=== PATIENT | female | born 1995 | race Caucasian/White ===

== ENCOUNTER 2019-09-23 15:43 | Emergency (ER) | payer OTHER ==
[~2019-09-23] VITALS: Ht 162.5 cm; Wt 68.0 kg
[2019-09-23 16:22] LABS: BASO % 0.7 % (0.0-1.0); EOS # 0.1 10*3/uL (0.0-0.4); EOS % 2.5 % (1.0-4.0); HEMATOCRIT 42.2 % (37.0-47.0); LYMPH # 1.8 10*3/uL (1.3-4.4); LYMPH % 32.6 % (27.0-41.0); MEAN CELL VOLUME 88.5 fl (81.0-99.0); MEAN CORPUSCULAR HGB 29.4 pg (27.0-31.0); MEAN CORPUSCULAR HGB CONC 33.2 g/dl (33.0-37.0); MEAN PLATELET VOLUME 11.2 fl (9.6-12.3); MONO # 0.3 10*3/uL (0.1-1.0); MONO % 4.8 % (3.0-9.0); NEUT # 3.3 10*3/uL (2.3-7.9); NEUT % 59.2 % (47.0-73.0); PLATELET COUNT AUTOMATED 215 10*3/uL (130-400); RED BLOOD COUNT 4.77 10*6/uL (4.10-5.10); RED CELL DISTRI WIDTH 13.3 % (0-14.5); WHITE BLOOD COUNT 5.6 10*3/uL (4.8-10.8)
[2019-09-23 16:25] LABS: BILIRUBIN NEGATIVE (NEGATIVE); BLOOD NEGATIVE (NEGATIVE); CLARITY CLEAR (CLEAR); COLOR YELLOW (YELLOW); GLUCOSE NEGATIVE (NEGATIVE); KETONE NEGATIVE (NEGATIVE); LEUKO ESTERASE NEGATIVE (NEGATIVE); NITRITE NEGATIVE (NEGATIVE); PH 5.5 (5.0-9.0); UROBILINOGEN 0.2 E.U./dl (0.2-1.0)
[2019-09-23 16:40] LABS: ALBUMIN 3.7 gm/dl (3.1-4.5); BUN 16 mg/dl (7-24); CHLORIDE 109 mmol/L (98-107); CREATININE 1.15 mg/dL (0.55-1.02); LIPASE 204 U/L (73-393); POTASSIUM 3.5 mmol/L (3.5-5.1); SGOT/AST 19 IU/L (3-35); SGPT/ALT 34 U/L (12-78); SODIUM 139 mmol/L (136-145); TOTAL PROTEIN 7.2 gm/dL (6.4-8.2)
[2019-09-23 16:41] LABS: ALKALINE PHOSPHATASE 74 U/L (45-117)
[2019-09-23 16:44] LABS: BACTERIA 1+
[2019-09-23 16:49] LABS: BETA-HCG, QUANT < 1.0 mIU/mL (1-3)
[2019-09-23] MEDS ORDERED: ZOFRAN4 MG PO (17:42)
== END 2019-09-23 17:48 | disposition home or self-care (01) ==
LOC: ED 15:43
PROVIDERS: Nurse Practitioner Family
DX: R10.84 Generalized abdominal pain (principal); R11.2 Nausea with vomiting, unspecified; F17.200 Nicotine dependence, unspecified, uncomplicated; Z91.030 Bee allergy status

== ENCOUNTER 2020-02-02 10:28 | Emergency (ER) | payer OTHER ==
[~2020-02-02] VITALS: Ht 162.5 cm; Wt 63.5 kg
[~2020-02-02 10:28] MED LIST: ZOFRAN4 MG PO
[2020-02-02] MEDS ORDERED: FLONASE ALLERG9.9 ML NAS (11:49)
[2020-02-02] MEDS ORDERED: AUGMENTIN 875-875 MG PO (11:49)
[2020-02-02] MEDS ORDERED: ROBITUSSIN DM 101 OZ PO (11:49)
== END 2020-02-02 12:01 | disposition home or self-care (01) ==
LOC: ED 10:28
DX: J45.909 Unspecified asthma, uncomplicated (principal); Z91.030 Bee allergy status; Z79.899 Other long term (current) drug therapy; J01.90 Acute sinusitis, unspecified

== ENCOUNTER 2020-08-24 18:25 | Emergency (ER) | payer OTHER ==
[~2020-08-24 18:25] MED LIST changes: +AUGMENTIN 875-875 MG PO; +FLONASE ALLERG9.9 ML NAS; +ROBITUSSIN DM 101 OZ PO
[2020-08-24] MEDS ORDERED: ACETAMINOPHEN500 M4 PO (20:20)
== END 2020-08-24 20:25 | disposition home or self-care (01) ==
LOC: ED 18:25
DX: S09.90XA Unspecified injury of head, initial encounter (principal); R11.0 Nausea; R51 Headache; R42 Dizziness and giddiness; Z91.018 Allergy to other foods; V43.62XA Car passenger injured in collision with other type car in traffic accident, initial encounter; Y93.89 Activity, other specified; Y92.89 Other specified places as the place of occurrence of the external cause; Y99.8 Other external cause status

== ENCOUNTER 2021-07-01 12:41 | Emergency (ER) | payer OTHER ==
[~2021-07-01 12:41] MED LIST changes: +ACETAMINOPHEN500 M4 PO
[2021-07-01 15:03] LABS: BASO % 0.3 % (0.0-1.0); EOS % 0.2 % (1.0-4.0); HEMATOCRIT 42.7 % (37.0-47.0); LYMPH # 1.7 10*3/uL (1.3-4.4); LYMPH % 28.5 % (27.0-41.0); MEAN CELL VOLUME 85.6 fl (81.0-99.0); MEAN CORPUSCULAR HGB 29.1 pg (27.0-31.0); MEAN PLATELET VOLUME 11.4 fl (9.6-12.3); MONO # 0.3 10*3/uL (0.1-1.0); MONO % 4.7 % (3.0-9.0); NEUT # 3.8 10*3/uL (2.3-7.9); PLATELET COUNT AUTOMATED 193 10*3/uL (130-400); RED BLOOD COUNT 4.99 10*6/uL (4.10-5.10); RED CELL DISTRI WIDTH 12.4 % (0-14.5); WHITE BLOOD COUNT 5.8 10*3/uL (4.8-10.8)
[2021-07-01 15:13] LABS: BILIRUBIN Negative (Negative); BLOOD Negative (Negative); CLARITY Clear (Clear); COLOR Yellow (Yellow); GLUCOSE Negative (Negative); KETONE 2+ (Negative); LEUKO ESTERASE 2+ (Negative); NITRITE Negative (Negative); SPECIFIC GRAVITY 1.025 (1.001-1.030)
[2021-07-01 15:14] LABS: ALBUMIN 4.4 gm/dl (3.1-4.5); ALKALINE PHOSPHATASE 70 U/L (45-117); BUN 11 mg/dl (7-24); CHLORIDE 108 mmol/L (98-107); CREATININE 1.12 mg/dL (0.55-1.02); LIPASE 181 U/L (73-393); POTASSIUM 3.7 mmol/L (3.5-5.1); SGOT/AST 8 IU/L (3-35); SGPT/ALT 17 U/L (12-78); SODIUM 139 mmol/L (136-145); TOTAL PROTEIN 7.7 gm/dL (6.4-8.2)
[2021-07-01 15:17] LABS: B-hCG (QUALITATIVE) NEGATIVE (NEGATIVE)
[2021-07-01 15:29] LABS: BACTERIA 2+; RBC 0-2 rbc/hpf (0-2)
[2021-07-01] MEDS ORDERED: ZOFRAN4 MG PO (15:47)
[2021-07-01] MEDS ORDERED: NAPROXEN250 MG PO (15:56)
[2021-07-01] MEDS ORDERED: TYLENOL325 M1 PO (15:56)
== END 2021-07-01 16:23 | disposition home or self-care (01) ==
LOC: ED 12:41
PROVIDERS: Emergency Medicine
DX: K52.9 Noninfective gastroenteritis and colitis, unspecified (principal); Z20.822 Contact with and (suspected) exposure to COVID-19; R11.10 Vomiting, unspecified; H92.09 Otalgia, unspecified ear; J02.9 Acute pharyngitis, unspecified; Z91.030 Bee allergy status

== ENCOUNTER 2021-08-01 09:12 | Emergency (ER) | payer OTHER ==
[~2021-08-01] VITALS: Wt 63.5 kg
[~2021-08-01 09:12] MED LIST changes: +NAPROXEN250 MG PO; +TYLENOL325 M1 PO
[2021-08-01 12:03] LABS: BILIRUBIN Negative (Negative); BLOOD Negative (Negative); CLARITY Clear (Clear); COLOR Yellow (Yellow); GLUCOSE Negative (Negative); KETONE Negative (Negative); LEUKO ESTERASE 1+ (Negative); NITRITE Negative (Negative); PH 6.5 (4.5-8.0)
[2021-08-01 12:23] LABS: BACTERIA 1+
[2021-08-01] MEDS ORDERED: CEFUROXIME AXE500 MG PO (13:43)
== END 2021-08-01 14:00 | disposition home or self-care (01) ==
LOC: ED 09:12
PROVIDERS: Physician Assistant
DX: N39.0 Urinary tract infection, site not specified (principal)

== ENCOUNTER 2021-12-03 14:41 | Emergency (ER) | payer OTHER ==
[~2021-12-03] VITALS: Ht 162.5 cm; Wt 68.0 kg
[~2021-12-03 14:41] MED LIST changes: +CEFUROXIME AXE500 MG PO
[2021-12-03 17:57] LABS: BASO % 0.5 % (0.0-1.0); EOS # 0.2 10*3/uL (0.0-0.4); EOS % 2.5 % (1.0-4.0); LYMPH # 1.4 10*3/uL (1.3-4.4); LYMPH % 22.5 % (27.0-41.0); MEAN CELL VOLUME 84.1 fl (81.0-99.0); MEAN CORPUSCULAR HGB 29.1 pg (27.0-31.0); MEAN CORPUSCULAR HGB CONC 34.5 g/dl (33.0-37.0); MEAN PLATELET VOLUME 11.3 fl (9.6-12.3); MONO # 0.3 10*3/uL (0.1-1.0); MONO % 5.2 % (3.0-9.0); NEUT # 4.2 10*3/uL (2.3-7.9); PLATELET COUNT AUTOMATED 230 10*3/uL (130-400); RED BLOOD COUNT 5.23 10*6/uL (4.10-5.10); RED CELL DISTRI WIDTH 12.1 % (0-14.5)
[2021-12-03 18:10] LABS: BILIRUBIN Negative (Negative); BLOOD Negative (Negative); CLARITY Cloudy (Clear); COLOR Dark Yellow (Yellow); GLUCOSE Negative (Negative); KETONE 4+ (Negative); LEUKO ESTERASE Trace (Negative); NITRITE Negative (Negative); PH 5.5 (4.5-8.0); SPECIFIC GRAVITY >= 1.030 (1.001-1.030); UROBILINOGEN 0.2 E.U./dl (0.0-1.0)
[2021-12-03 18:14] LABS: ALBUMIN 4.4 gm/dl (3.1-4.5); CREATININE 1.54 mg/dL (0.55-1.02); POTASSIUM 3.9 mmol/L (3.5-5.1); TOTAL PROTEIN 7.9 gm/dL (6.4-8.2)
[2021-12-03 18:20] LABS: MUCOUS TRACE
[2021-12-03] MEDS ORDERED: ZOFRAN4 MG PO (19:50)
== END 2021-12-03 20:31 | disposition home or self-care (01) ==
LOC: ED 14:41
PROVIDERS: Nurse Practitioner Family
DX: E86.0 Dehydration (principal); Z20.822 Contact with and (suspected) exposure to COVID-19

== ENCOUNTER 2022-11-05 12:59 | Emergency (ER) | payer BC, OTHER ==
[~2022-11-05] VITALS: Ht 162.5 cm; Wt 65.8 kg
== END 2022-11-05 15:02 | disposition left against medical advice (07) ==
LOC: ED 12:59
DX: Z53.21 Procedure and treatment not carried out due to patient leaving prior to being seen by health care provider (principal)

== ENCOUNTER 2023-01-14 12:17 | Emergency (ER) | payer BC, OTHER ==
[2023-01-14] MEDS ORDERED: ZITHROMAX250 MG PO (15:47)
[2023-01-14] MEDS ORDERED: BENZONATATE100 M1 PO (15:47)
[2023-01-14] MEDS ORDERED: ONDANSETRON4 MG SL (15:47)
== END 2023-01-14 15:52 | disposition home or self-care (01) ==
LOC: ED 12:17
DX: J40 Bronchitis, not specified as acute or chronic (principal)

== ENCOUNTER 2024-06-01 08:43 | Emergency (ER) | payer OTHER ==
[~2024-06-01] VITALS: Wt 75.3 kg
[~2024-06-01 08:43] MED LIST changes: +BENZONATATE100 M1 PO; +ONDANSETRON4 MG SL; +ZITHROMAX250 MG PO
[2024-06-01 11:06] LABS: BASO % 0.2 % (0.0-1.0); EOS % 0.8 % (1.0-4.0); HEMATOCRIT 41.2 % (37.0-47.0); LYMPH # 1.6 10*3/uL (1.3-4.4); LYMPH % 31.9 % (27.0-41.0); MEAN CELL VOLUME 86.4 fl (81.0-99.0); MEAN CORPUSCULAR HGB 29.6 pg (27.0-31.0); MEAN CORPUSCULAR HGB CONC 34.2 g/dl (33.0-37.0); MEAN PLATELET VOLUME 10.7 fl (9.6-12.3); MONO # 0.2 10*3/uL (0.1-1.0); MONO % 4.7 % (3.0-9.0); NEUT % 62.2 % (47.0-73.0); PLATELET COUNT AUTOMATED 202 10*3/uL (130-400); RED BLOOD COUNT 4.77 10*6/uL (4.10-5.10); RED CELL DISTRI WIDTH 12.6 % (0-14.5); WHITE BLOOD COUNT 4.9 10*3/uL (4.8-10.8)
[2024-06-01] MEDS ORDERED: SODIUM CHLORIDE 0.9% 1,000 ML IV ONE (11:15)
[2024-06-01] MEDS ORDERED: Ondansetron Hydrochloride 4 MG/2 ML VIAL IV ONE (11:15)
[2024-06-01 11:28] LABS: ALKALINE PHOSPHATASE 70 U/L (46-116); BUN 8 mg/dl (9-23); CHLORIDE 107 mmol/L (98-107); LIPASE 44 U/L (12-53); POTASSIUM 3.1 mmol/L (3.4-5.1); SGPT/ALT 17 U/L (5-49); TOTAL PROTEIN 7.2 gm/dL (6.0-8.0)
[2024-06-01 11:41] LABS: BILIRUBIN Negative (Negative); BLOOD Negative (Negative); CLARITY Clear (Clear); COLOR Yellow (Yellow); GLUCOSE Negative (Negative); KETONE Negative (Negative); LEUKO ESTERASE Negative (Negative); NITRITE Negative (Negative); PH 6.5 (4.5-8.0); UROBILINOGEN 0.2 E.U./dl (0.0-1.0)
[2024-06-01 11:49] LABS: RBC 0-2 rbc/hpf (0-2); WBC 0-2 wbc/hpf (0-5)
[2024-06-01] MEDS ORDERED: Ondansetron4 MG PO (11:54)
== END 2024-06-01 12:39 | disposition home or self-care (01) ==
LOC: ED 08:43
PROVIDERS: Nurse Practitioner Family
DX: A08.4 Viral intestinal infection, unspecified (principal); R11.2 Nausea with vomiting, unspecified; R19.7 Diarrhea, unspecified; Z88.8 Allergy status to other drugs, medicaments and biological substances

== ENCOUNTER 2024-09-21 12:04 | Emergency (ER) | payer OTHER ==
[~2024-09-21] VITALS: Ht 162.5 cm; Wt 77.2 kg
[~2024-09-21 12:04] MED LIST changes: +Ondansetron4 MG PO
[2024-09-21] MEDS ORDERED: ACETAMINOPHEN 325 MG TAB PO ONE (13:35)
[2024-09-21] MEDS ORDERED: MEDROL DOSEPAK4 MG PO (15:17)
== END 2024-09-21 15:26 | disposition home or self-care (01) ==
LOC: ED 12:04
DX: J40 Bronchitis, not specified as acute or chronic (principal); R42 Dizziness and giddiness; Z88.8 Allergy status to other drugs, medicaments and biological substances

== ENCOUNTER 2024-09-27 08:24 | Emergency (ER) | payer OTHER ==
[~2024-09-27] VITALS: Ht 165.1 cm; Wt 77.1 kg
[~2024-09-27 08:24] MED LIST changes: +MEDROL DOSEPAK4 MG PO
[2024-09-27] MEDS ORDERED: hydrOXYzine pamoate 25 MG CAP PO ONE (08:55)
[2024-09-27 09:10] LABS: BASO # 0.1 10*3/uL (0.0-0.1); BASO % 0.5 % (0.0-1.0); EOS # 0.1 10*3/uL (0.0-0.4); EOS % 1.1 % (1.0-4.0); HEMATOCRIT 42.2 % (37.0-47.0); LYMPH # 4.4 10*3/uL (1.3-4.4); LYMPH % 45.3 % (27.0-41.0); MEAN CORPUSCULAR HGB 29.5 pg (27.0-31.0); MEAN CORPUSCULAR HGB CONC 33.9 g/dl (33.0-37.0); MEAN PLATELET VOLUME 10.9 fl (9.6-12.3); MONO # 0.5 10*3/uL (0.1-1.0); MONO % 5.1 % (3.0-9.0); NEUT # 4.6 10*3/uL (2.3-7.9); NEUT % 47.7 % (47.0-73.0); PLATELET COUNT AUTOMATED 221 10*3/uL (130-400); RED BLOOD COUNT 4.85 10*6/uL (4.10-5.10); RED CELL DISTRI WIDTH 12.2 % (0-14.5); WHITE BLOOD COUNT 9.6 10*3/uL (4.8-10.8)
[2024-09-27 09:31] LABS: BUN 16 mg/dl (9-23); CHLORIDE 106 mmol/L (98-107)
[2024-09-27 09:42] LABS: B-hCG (QUALITATIVE) NEGATIVE (NEGATIVE)
[2024-09-27] MEDS ORDERED: POTASSIUM CHLORIDE 20 MEQ TAB PO ONE (09:50)
[2024-09-27] MEDS ORDERED: AVPAK AZITHROM250 M1 PO (10:19)
[2024-09-27] MEDS ORDERED: K-TAB20 MEQ PO (10:22)
== END 2024-09-27 10:36 | disposition home or self-care (01) ==
LOC: ED 08:24
PROVIDERS: Internal Medicine
DX: J45.909 Unspecified asthma, uncomplicated (principal); I10 Essential (primary) hypertension; Z88.8 Allergy status to other drugs, medicaments and biological substances